=== PATIENT | male | born 1975 | race Caucasian/White ===

== ENCOUNTER 2018-03-25 20:57 | Emergency (ER) | payer OTHER ==
[~2018-03-25] VITALS: Ht 170.2 cm; Wt 69.4 kg
[~2018-03-25 20:57] MED LIST: AMOXICOT500 MG PO; BACTRIM DS 8001 TAB PO; DILAUDID2 MG PO; EXCEDRIN MIGRAI1 TAB PO; FLEXERIL10 MG PO; MOBIC 15MG15 MG PO; MOTRIN800 MG PO; NORTRIPTYLINE H50 MG PO; PERCOCET 325 MG1 TA2 PO; PERCOCET 325 MG1 TAB PO; PREDNISONE10 MG PO; TRAZODONE HCL100 MG PO; TYLENOL #31 TAB PO; VICODIN5-300 PO
--- NOTE | 2018-03-25 21:07 | ED GENERAL ADULT ---
History of Present Illness General Chief Complaint: Fall Stated Complaint: R SIDED BODY PAIN S/P FALL DOWN 10 OR 12 STAIRS Source: patient Exam Limitations: no limitations Vital Signs & Intake/Output Vital Signs & Intake/Output Vital Signs Date Time Temp Pulse Resp B/P B/P Pulse O2 O2 Flow FiO2 Mean Ox Delivery Rate 03/25 2352 97.8 80 16 122/80 99 Room Air 03/25 2112 99.6 101 18 123/84 95 Room Air ED Intake and Output 03/26 0000 03/25 1200 Intake Total Output Total Balance Patient 153 lb Weight Weight Reported by Patient Measurement Method Allergies Coded Allergies: prochlorperazine (Intermediate, stiff neck heart racing 03/25/18) Reconcile Medications Cyclobenzaprine HCl 10 MG TABLET 1 TAB PO BID PAIN HYDROCODONE/ACETAMINOPHEN (Hydrocodon-Acetaminophen 5-325) 5 MG-325 MG TABLET 1 TAB PO Q6HR PRN PAIN Ibuprofen 600 MG TABLET 1 TAB PO TID PRN PAIN with food Ibuprofen (Motrin) 800 MG TAB 1 TAB PO Q8P PRN PAIN NORTRIPTYLINE HCL (Nortriptyline HCl) 50 MG CAPSULE 2 TAB PO QHS 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 yes Onset: Abrupt Duration: hour(s): Timing: recent history HPI: 03/25/18 42-year-old male presents to the emergency department after a mechanical slip and fall going down 17 steps. He injured his head, neck, left hip, left leg, and left ankle. He denies any abdominal pain or chest pain. No loss of consciousness. Past History Travel History Traveled to [place] past 21 day No Medical History Any Pertinent Medical History? 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 No Review of Systems Review of Systems Constitutional: Denies: fever. EENTM: Denies: visual changes. Respiratory: Denies: short of breath. Cardiovascular: Denies: chest pain. GI: Denies: abdominal pain. Genitourinary: Reports: no symptoms. Musculoskeletal: Reports: see HPI. Skin: Reports: no symptoms. Neurological/Psychological: Reports: headache. Hematologic/Endocrine: Reports: bruising, bleeding. Immunologic/Allergic: Reports: no symptoms. Physical Exam Physical Exam General Appearance: alert, awake, anxious, mild distress Head: atraumatic, normal appearance Eyes: Bilateral: normal appearance, PERRL, EOMI. Ears, Nose, Throat: normal pharynx, normal ENT inspection Neck: normal inspection, supple, full range of motion Respiratory: chest non-tender, no respiratory distress Cardiovascular: regular rate/rhythm Peripheral Pulses: 4+ radial (R), 4+ radial (L) Gastrointestinal: soft, non-tender Back: decreased range of motion Extremities: tenderness Neurologic/Psych: no motor/sensory deficits, awake, alert, oriented x 3 Skin: intact, normal color, warm/dry Core Measures ACS in differential dx? No CVA/TIA Diagnosis: No Sepsis Present: No Sepsis Focused Exam Completed? No Progress Differential Diagnoses I considered the following diagnoses in my evaluation of the patient: [Fracture, dislocation, intracranial bleed] Plan of Care: Current Medications Sig/Taiwo Start time Last Medication Dose Stop Time Status Admin Cyclobenzaprine HCl 10 MG ONCE ONE 03/25 2345 UNVr (Flexeril 10MG Tab) 03/25 2346 Initial ED EKG: none Departure Departure Disposition: STILL A PATIENT Condition: Stable Clinical Impression Primary Impression: Contusion Secondary Impressions: Avulsion fracture of ankle Referrals: Patient Has No Primary Care Dr Departure Forms: Customer Survey General Discharge Information Prescriptions: Current Visit Scripts Ibuprofen 1 TAB PO TID PRN PAIN #20 TAB with food Cyclobenzaprine HCl 1 TAB PO BID #20 TAB Comments PATIENT: YOBANI PIERCE PRESENT AGE: 42 PATIENT ACCOUNT NO: [id number] : 76 LOCATION: [facility] ORDERING PHYSICIAN: Efraín Mixon DO SERVICE DATE: 03/25/18 EXAM TYPE: CAT - CT CERV SPINE WO IV CONTRAST; CT HEAD WO IV CONTRAST EXAMINATIONS: CT HEAD WITHOUT CONTRAST AND CT CERVICAL SPINE WITHOUT CONTRAST CLINICAL INFORMATION: Fall, pain COMPARISON: Remote CT 07/31/2009 TECHNIQUE: Contiguous helical images of the brain were obtained without IV contrast. Contiguous helical images of the cervical spine were obtained without IV contrast. Multiplanar reconstructions were performed. DLP: 963 mGy-cm FINDINGS: There are no pathologic extra-axial fluid collections. The lateral, third, fourth ventricles are nondilated and concordant with the appearance of the sulci. There is no evidence for acute intraparenchymal hemorrhage or infarct. There is neither mass nor mass effect. There is no shift of midline structures. The paranasal sinuses and mastoid air cells are clear. There are no osseous lesions. The cervical vertebra are in normal alignment. Disc heights and vertebral heights are well-preserved. There are no fractures. There is no prevertebral soft tissue swelling. Normal thyroid gland. The visualized lung apices are clear. IMPRESSION: No evidence for acute intracranial injury. No evidence for acute injury to the cervical spine. DICTATED BY: Luci Rock MD DATE/TIME DICTATED:03/25/182241 MOTION PICTURE ACTOR:MICHELLE DATE/TIME TRANSCRIBED:03/25/182241 CONFIDENTIAL, DO NOT COPY WITHOUT APPROPRIATE AUTHORIZATION. <Electronically signed in Other Vendor System> SIGNED BY: Luci Rock MD 03/25/183 PATIENT: YOBANI PIERCE PRESENT AGE: 42 PATIENT ACCOUNT NO: [id number] : 76 LOCATION: [facility] ORDERING PHYSICIAN: Efraín Mixon DO SERVICE DATE: 03/25/18 EXAM TYPE: CAT - CT CERV SPINE WO IV CONTRAST; CT HEAD WO IV CONTRAST EXAMINATIONS: CT HEAD WITHOUT CONTRAST AND CT CERVICAL SPINE WITHOUT CONTRAST CLINICAL INFORMATION: Fall, pain COMPARISON: Remote CT 07/31/2009 TECHNIQUE: Contiguous helical images of the brain were obtained without IV contrast. Contiguous helical images of the cervical spine were obtained without IV contrast. Multiplanar reconstructions were performed. DLP: 963 mGy-cm FINDINGS: There are no pathologic extra-axial fluid collections. The lateral, third, fourth ventricles are nondilated and concordant with the appearance of the sulci. There is no evidence for acute intraparenchymal hemorrhage or infarct. There is neither mass nor mass effect. There is no shift of midline structures. The paranasal sinuses and mastoid air cells are clear. There are no osseous lesions. The cervical vertebra are in normal alignment. Disc heights and vertebral heights are well-preserved. There are no fractures. There is no prevertebral soft tissue swelling. Normal thyroid gland. The visualized lung apices are clear. IMPRESSION: No evidence for acute intracranial injury. No evidence for acute injury to the cervical spine. DICTATED BY: Luci Rock MD DATE/TIME DICTATED:03/25/182241 MOTION PICTURE ACTOR:MICHELLE DATE/TIME TRANSCRIBED:03/25/182241 CONFIDENTIAL, DO NOT COPY WITHOUT APPROPRIATE AUTHORIZATION. <Electronically signed in Other Vendor System> SIGNED BY: uLci Rock MD 03/25/18 3562 physical exam was significant for tenderness to the left hip, the left lateral tibia-fibula, and the lateral left ankle. He was placed in a left postop boot and given crutches for ambulation. Critical Care Note Critical Care Note Critical Care Time: non-applicable
--- NOTE | 2018-03-25 22:32 | RADIOLOGY REPORT ---
EXAMINATION: XR HIP, LEFT XR TIBIA AND FIBULA, LEFT XR ANKLE, LEFT CLINICAL INFORMATION: Fall, pain COMPARISON: CT 12/05/2012 TECHNIQUE: 1. 2 views of the left hip 2. AP and lateral views of the left tibia and fibula were obtained. 3. 3 views of the left ankle FINDINGS: Left hip: The femoral head appears normally located within the acetabulum. There is minimal joint space narrowing. A small well-corticated osseous focus along the lateral margin of the acetabulum is consistent with an os acetabuli. There is no acute fracture or subluxation. The adjacent ilioischial and iliopectineal lines appear intact. Left tibia, fibula the left tibia and fibula appear intact. There is mild cornering of the proximal tibial plateau and sharpening of the tibial spines. No acute fracture or subluxation. Left ankle: The talar dome appears intact. The ankle mortise is congruent. On the frontal view there is some irregularity of the lateral cortex of the talus. On the oblique view there is some irregularity of the distal tip of the fibula. Otherwise, no acute fracture or subluxation. No ankle joint effusion. IMPRESSION: 1. Minimal osteoarthritis involving the left hip. No acute left hip injury. 2. 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 3. Likely avulsive injuries involving the talofibular ligaments of the left ankle. The alignment of the left ankle is preserved. No significant fracture.
--- NOTE | 2018-03-25 22:54 | CT SCAN REPORT ---
EXAMINATIONS: CT HEAD WITHOUT CONTRAST AND CT CERVICAL SPINE WITHOUT CONTRAST CLINICAL INFORMATION: Fall, pain COMPARISON: Remote CT 07/31/2009 TECHNIQUE: Contiguous helical images of the brain were obtained without IV contrast. Contiguous helical images of the cervical spine were obtained without IV contrast. Multiplanar reconstructions were performed. DLP: 963 mGy-cm FINDINGS: There are no pathologic extra-axial fluid collections. The lateral, third, fourth ventricles are nondilated and concordant with the appearance of the sulci. There is no evidence for acute intraparenchymal hemorrhage or infarct. There is neither mass nor mass effect. There is no shift of midline structures. The paranasal sinuses and mastoid air cells are clear. There are no osseous lesions. The cervical vertebra are in normal alignment. Disc heights and vertebral heights are well-preserved. There are no fractures. There is no prevertebral soft tissue swelling. Normal thyroid gland. The visualized lung apices are clear. IMPRESSION: No evidence for acute intracranial injury. No evidence for acute injury to the cervical spine.
[2018-03-25] MEDS ORDERED: CYCLOBENZAPRINE10 M1 PO (23:41)
[2018-03-25] MEDS ORDERED: IBUPROFEN600 M1 PO (23:41)
[2018-03-25 23:52] VITALS: BP 122/80
== END 2018-03-25 23:53 ==
LOC: ERH 20:57
DX: S82.892A Other fracture of left lower leg, initial encounter for closed fracture (principal); T14.8XXA Other injury of unspecified body region, initial encounter; W10.9XXA Fall (on) (from) unspecified stairs and steps, initial encounter; Y92.9 Unspecified place or not applicable; Y93.9 Activity, unspecified
CPT/HCPCS: 73502-LT; 73590-LT; 73610-LT